=== PATIENT | male | born 1970 | race Caucasian/White ===

== ENCOUNTER 2017-05-06 13:35 | Emergency (ER) | payer OTHER, BC ==
[2017-05-06] MEDS ORDERED: ONDANSETRON HCL INJ/PF 4 MG/2 ML SDV IV ONE (13:56)
[2017-05-06] MEDS ORDERED: MORPHINE SULFATE 10 MG/ML INJ IM ONE (13:56)
--- NOTE | 2017-05-06 14:42 | RADIOLOGY REPORT (SQ) ---
EXAM DESCRIPTION: SHOULDER RIGHT 2 OR MORE VIEWS COMPLETED DATE/TIME: 05/06/2017 2:34 pm REASON FOR STUDY: shoulder injury COMPARISON: None. NUMBER OF VIEWS: Three views. TECHNIQUE: Internal rotation, external rotation, and Y view images acquired of the right shoulder. LIMITATIONS: None. FINDINGS: MINERALIZATION: Normal. BONES: Comminuted fracture of the clavicle. No fracture or dislocation involving the glenohumeral byron int or acromioclavicular joint. JOINTS: No dislocation. VISUALIZED LUNGS AND RIBS: No pneumothorax. No rib fracture. SOFT TISSUES: No radiopaque foreign body. OTHER: No other significant finding. IMPRESSION: COMMINUTED FRACTURE OF THE RIGHT CLAVICLE. TECHNICAL DOCUMENTATION: JOB ID: [id number] [employer]- All Rights Reserved
[2017-05-06] MEDS ORDERED: MORPHINE SULFATE 10 MG/ML INJ IV ONE (15:13)
[2017-05-06] MEDS ORDERED: HYDROCODONE/ACETAMINOPHEN 5-325 MG 6 TAB/DSPK PO PRN (17:04)
[2017-05-06 17:37] VITALS: BP 118/91
--- NOTE | 2017-05-06 18:35 | ER Document Report ---
ED General - General Chief Complaint: Shoulder Injury Stated Complaint: SHOULDER INJURY Time Seen by Provider: 05/06/17 13:57 TRAVEL OUTSIDE OF THE [place] IN LAST 30 DAYS: No - HPI Patient complains to provider of: Fall right shoulder injury Notes: Patient states he fell approximately 4 foot off the bed of a truck landing on the ground injuring his right shoulder. Denies any loss consciousness patient denies any past medical history. Patient denies fevers chills nausea vomiting diarrhea chest pain abdominal pain. Patient mostly complaining of the shoulder and the upper clavicular region. - Related Data Allergies/Adverse Reactions: No Known Allergies Allergy (Verified 05/06/17 13:42) Past Medical History - Social History Smoking Status: Never Smoker Frequency of alcohol use: None Drug Abuse: None Family History: Reviewed & Not Pertinent Patient has suicidal ideation: No Patient has homicidal ideation: No - Past Medical History Cardiac Medical History: Reports: Hx Hypercholesterolemia Renal/ Medical History: Denies: Hx Peritoneal Dialysis Psychiatric Medical History: Reports: Hx Attention Deficit Hyperactivity Disorder Past Surgical History: Reports: Hx Orthopedic Surgery - right knee, Hx Urinary Tract Surgery - vastectomy Review of Systems - Review of Systems Constitutional: No symptoms reported EENT: No symptoms reported Cardiovascular: No symptoms reported Respiratory: No symptoms reported Gastrointestinal: No symptoms reported Genitourinary: No symptoms reported Male Genitourinary: No symptoms reported Musculoskeletal: Other - Shoulder pain Skin: No symptoms reported Hematologic/Lymphatic: No symptoms reported Neurological/Psychological: No symptoms reported -: Yes All other systems reviewed and negative Physical Exam - Vital signs Vitals: Temp Pulse Resp BP Pulse Ox 97.7 F 101 H 16 136/101 H 98 05/06/17 15:00 05/06/17 15:00 05/06/17 15:00 05/06/17 15:00 05/06/17 15:00 Interpretation: Normal - General General appearance: Appears well, Alert - HEENT Head: Normocephalic, Atraumatic Eyes: Normal Pupils: PERRL - Respiratory Respiratory status: No respiratory distress Chest status: Nontender Breath sounds: Normal Chest palpation: Normal Notes: Patient with obvious deformity of the right clavicle. - Cardiovascular Rhythm: Regular Heart sounds: Normal auscultation Murmur: No - Abdominal Inspection: Normal Distension: No distension Bowel sounds: Normal Tenderness: Nontender Organomegaly: No organomegaly - Back Back: Normal, Nontender - Extremities General upper extremity: Normal inspection, Nontender, Normal color, Normal ROM , Normal temperature General lower extremity: Normal inspection, Nontender, Normal color, Normal ROM , Normal temperature, Normal weight bearing. No: Noe's sign - Neurological Neuro grossly intact: Yes Cognition: Normal Orientation: AAOx4 Rice Coma Scale Eye Opening: Spontaneous Rice Coma Scale Verbal: Oriented Rice Coma Scale Motor: Obeys Commands Rice Coma Scale Total: 15 Speech: Normal Motor strength normal: LUE, RUE, LLE, RLE Sensory: Normal - Psychological Associated symptoms: Normal affect, Normal mood - Skin Skin Temperature: Warm Skin Moisture: Dry Skin Color: Normal Course - Re-evaluation Re-evalutation: 05/06/17 18:36 X-ray showed normal shoulder a right clavicular fracture along with at least 4 rib fractures. Initial radiology report did not include these and did notify the radiologist. States an addendum will be made. No signs of pneumothorax patient's vital signs otherwise are stable. Patient also underwent a FAST exam that was negative just prior to his discharge. Patient understands follow-up with orthopedic doctors take medications as prescribed. - Vital Signs Vital signs: Temp Pulse Resp BP Pulse Ox 97.7 F 101 H 16 136/101 H 98 05/06/17 15:00 05/06/17 15:00 05/06/17 15:00 05/06/17 15:00 05/06/17 15:00 Discharge - Discharge Clinical Impression: Clavicle fracture Qualifiers: Encounter type: initial encounter Clavicle location: unspecified part of clavicle Fracture type: closed Fracture alignment: nondisplaced Laterality: unspecified laterality Qualified Code(s): S42.009A - Fracture of unspecified part of unspecified clavicle, initial encounter for closed fracture Multiple rib fractures Qualifiers: Encounter type: initial encounter Fracture type: closed Laterality: right Qualified Code(s): S22.41XA - Multiple fractures of ribs, right side, initial encounter for closed fracture Condition: Good Instructions: Fractured Clavicle ([facility]), Rib Injuries and Fractures ([facility]) Additional Instructions: Your x-ray shows a collarbone fracture along with 4 rib fractures. Please make sure that you are using the incentive spirometer taking 10 deep breaths every TV commercial. Take pain medication as prescribed I will call the orthopedic doctor tomorrow to schedule follow-up appointment. Prescriptions: Hydrocodone Bit/Acetaminophen [Hydrocodon-Acetaminophen 5-325] 1 each PO Q6 #40 tablet Forms: Return to Work Referrals: TAMARA WANG MD [ACTIVE STAFF] - Follow up as needed
== END 2017-05-06 17:37 | disposition home or self-care (01) ==
LOC: ER 13:35
DX: S42.001A Fracture of unspecified part of right clavicle, initial encounter for closed fracture (principal); S22.41XA Multiple fractures of ribs, right side, initial encounter for closed fracture; W17.89XA Other fall from one level to another, initial encounter
CPT/HCPCS: 99283; 96372; 96374; 96375; 73030; L3650; J2270; J2405